=== PATIENT | female | born 1965 | race Caucasian/White ===

== ENCOUNTER 2022-11-12 01:30 | Outpatient (CLI) | payer BC, SELFPAY ==
--- NOTE | 2022-11-12 | DI.US_ITS ---
Exam(s) US BREAST RT COMPLETE MG MAMMO DIAGNOSTIC BI EXAM: MG MAMMO DIAGNOSTIC BI AND COMPLETE RIGHT BREAST ULTRASOUND CLINICAL HISTORY: DIAGNOSTIC, RT BREAST LUMP 7 OCLOCK, 3 BY 2 CM,N63.0. TECHNIQUE: Bilateral CC and MLO mammographic images were obtained with 3D tomosynthesis technique an d utilizing computer aided detection (CAD). Also performed additional spot compression view of the r ight breast. Complete right breast ultrasound was performed including all 4 quadrants as well as the right axilla. COMPARISON: NONE. This patient has had 1 prior mammogram in [place] over 1 year ago. She did not have symptoms at that time. Present complaint is a new right breast lump x4 months. Denies pain. Denies fever. Denies nipple d ischarge. FINDINGS: DIAGNOSTIC BILATERAL MAMMOGRAM: Fibroglandular tissue pattern bilaterally is moderately dense. There are no significant focal findings in the left breast. Posteriorly in the right breast there is a suggestion of a lobulated nodular density. Persists on sp ot compression view. No malignant-appearing microcalcification. No obvious architectural distortion . COMPLETE RIGHT BREAST ULTRASOUND: At the 4 o'clock position there is a concerning solid nodule measur ing approximately 3 by 1.2 cm and corresponding to the palpable lump. Exhibits neutral through transmission. No other focal findings in the 4 quadrants of the right breast. Right axilla is negative for signifi cant adenopathy IMPRESSION: Findings at 4 o'clock position of the right breast which correspond to palpable lump and suspicious f or malignancy. Ultrasound-guided core biopsy recommended. . The patient was informed of the findings and follow-up recommendations by myself prior to leaving the department today. BI-RADS Category 5 - Highly Suggestive of Malignancy: Biopsy recommended Breast Density - Category C - Heterogeneously dense Breast density Category C or D implies that the patient has dense breast tissue. Dense breast tissue can make it harder to find cancer on a mammogram. Dense breast tissue is also associated with an incr eased risk of breast cancer. This information about the result of the mammogram report was provided to the patient to raise their awareness. Use this report when you speak with the patient about their risks for breast cancer, which includes their family history. At that time, you may recommend additional screening tests (Ultrasoun d or MRI) as these tests may add significant information. A negative radiographic report should not delay biopsy if a dominant or clinically suspicious mass is present. Up to ten percent of cancers are not identified on mammography. A negative report may reinforce clinical impression. Adenosis and dense breasts may obscure an underlying neoplasm. False positive reports average 6 to 10%. Patient will receive a letter notifying them of these results.
== END 2022-11-12 01:50 ==
PROVIDERS: Visit Provider Nurse Practitioner Family
DX: N63.0 Unspecified lump in unspecified breast (principal); R92.8 Other abnormal and inconclusive findings on diagnostic imaging of breast
CPT/HCPCS: 76642; 77062; 77066; G0279

== ENCOUNTER 2023-05-27 02:44 | Outpatient (RCR) | payer MEDICAID, SELFPAY ==
[2023-05-27] MEDS: Normal Saline Flush 10 ML SYR IVP (08:11)
[2023-05-27 08:21] LABS: Absolute Basophil Count 0.05 10^3/uL (0.0-0.2); Absolute Eosinophil Count 0.12 10^3/uL (0.0-0.7); Absolute Lymphocyte Count 2.73 10^3/uL (1.2-3.4); Absolute Monocyte Count 0.91 10^3/uL (0.1-0.8); Absolute Neutrophil Count 4.89 10^3/uL (1.2-6.7); Basophils % 0.6; Eosinophils % 1.4; HCT 32.3 % (36.0-46.0); HGB 10.6 g/dL (11.2-15.7); Immature Grans % 1.1; MCH 34.2 pg (27.0-33.0); MCHC 32.8 % (32.0-36.0); MCV 104 fL (80-95); MPV 8.9 fL (8.0-11.0); Monocytes % 10.3; Neutrophils % 55.6; Platelet Count 417 10^3/uL (130-400); RDW 13.9 % (11.7-14.6); RDW-SD 52.7 fL
[2023-05-27 08:44] LABS: ALT 16 U/L (14-59); AST 11 U/L (15-37); Albumin 3.7 g/dL (3.4-5.0); Alkaline Phosphatase 97 U/L (46-116); Anion Gap 10.7 mmol/L (3-11); BUN 7 mg/dL (7-18); Bilirubin, Total 0.3 mg/dL (0.2-1.0); CO2 24.3 mmol/L (21.0-32.0); CREATININE 0.6 mg/dL (0.55-1.02); Calcium 10.2 mg/dL (8.5-10.1); Chloride 106 mmol/L (98-107); Estimated GFR 105.94 (mL/min/1.73m2); FREE T4 0.99 ng/dL (0.76-1.46); Glucose 125 mg/dL (74-106); Potassium 3.6 mmol/L (3.5-5.1); Sodium 141 mmol/L (136-145); TSH 1.73 uIU/mL (0.36-3.74); Total Protein 8.4 g/dL (6.4-8.2)
[2023-05-28 16:33] LABS: Cancer Ag 15-3 20 U/mL (<30)
== END 2023-06-03 23:59 | disposition home or self-care (01) ==
LOC: INF 02:44
PROVIDERS: Visit Provider Internal Medicine Hematology & Oncology
DX: C50.911 Malignant neoplasm of unspecified site of right female breast (principal); Z17.1 Estrogen receptor negative status [ER-]; Z45.2 Encounter for adjustment and management of vascular access device
CPT/HCPCS: 36591; 80053; 86304; 84439; 84443; 85025; 86300

== ENCOUNTER 2023-06-17 00:58 | Outpatient (RCR) | payer MEDICAID, SELFPAY ==
[2023-06-17] MEDS: Normal Saline Flush 10 ML SYR IVP (08:13)
[2023-06-17 08:31] LABS: Abs Immature Grans 0.03 10^3/uL (0.0-0.06); Absolute Basophil Count 0.09 10^3/uL (0.0-0.2); Absolute Eosinophil Count 0.05 10^3/uL (0.0-0.7); Absolute Neutrophil Count 3.05 10^3/uL (1.2-6.7); Basophils % 1.4; Eosinophils % 0.8; HCT 33.6 % (36.0-46.0); Immature Grans % 0.5; Lymphocytes % 36.8; MCH 32.8 pg (27.0-33.0); MCHC 32.7 % (32.0-36.0); MCV 100 fL (80-95); MPV 9.2 fL (8.0-11.0); Monocytes % 13.8; Neutrophils % 46.7; Platelet Count 373 10^3/uL (130-400); RBC 3.35 10^6/uL (3.93-5.22); RDW 13.7 % (11.7-14.6); WBC 6.52 10^3/uL (4.4-10.8)
[2023-06-17 09:25] LABS: ALT 17 U/L (14-59); AST 12 U/L (15-37); Albumin 3.8 g/dL (3.4-5.0); Alkaline Phosphatase 83 U/L (46-116); BUN 8 mg/dL (7-18); Bilirubin, Total 0.3 mg/dL (0.2-1.0); CREATININE 0.7 mg/dL (0.55-1.02); Calcium 10.3 mg/dL (8.5-10.1); Chloride 107 mmol/L (98-107); Estimated GFR 102.07 (mL/min/1.73m2); FREE T4 0.93 ng/dL (0.76-1.46); Glucose 120 mg/dL (74-106); Potassium 3.7 mmol/L (3.5-5.1); Sodium 142 mmol/L (136-145); TSH 2.03 uIU/mL (0.36-3.74); Total Protein 8.1 g/dL (6.4-8.2)
[2023-06-19 13:53] LABS: Cancer Ag 15-3 20 U/mL (<30)
== END 2023-07-03 23:59 | disposition home or self-care (01) ==
LOC: INF 00:58
PROVIDERS: Visit Provider Internal Medicine Hematology & Oncology
DX: C50.911 Malignant neoplasm of unspecified site of right female breast (principal); Z17.1 Estrogen receptor negative status [ER-]; Z45.2 Encounter for adjustment and management of vascular access device
CPT/HCPCS: 36591; 80053; 86304; 84439; 84443; 85025; 86300

== ENCOUNTER 2023-07-08 01:57 | Outpatient (RCR) | payer MEDICAID, SELFPAY ==
[2023-07-08] MEDS: Normal Saline Flush 10 ML SYR IVP (08:13)
[2023-07-08 08:34] LABS: Abs Immature Grans 0.02 10^3/uL (0.0-0.06); Absolute Basophil Count 0.06 10^3/uL (0.0-0.2); Absolute Eosinophil Count 0.07 10^3/uL (0.0-0.7); Absolute Monocyte Count 0.91 10^3/uL (0.1-0.8); Absolute Neutrophil Count 3.97 10^3/uL (1.2-6.7); Basophils % 0.8; HGB 11.1 g/dL (11.2-15.7); Immature Grans % 0.3; Lymphocytes % 31.4; MCH 33.1 pg (27.0-33.0); MCHC 33.6 % (32.0-36.0); MCV 99 fL (80-95); MPV 9.4 fL (8.0-11.0); Monocytes % 12.4; Neutrophils % 54.1; Platelet Count 343 10^3/uL (130-400); RBC 3.35 10^6/uL (3.93-5.22); RDW-SD 50.7 fL; WBC 7.33 10^3/uL (4.4-10.8)
[2023-07-08 09:02] LABS: ALT 17 U/L (14-59); AST 13 U/L (15-37); Albumin 3.9 g/dL (3.4-5.0); Alkaline Phosphatase 85 U/L (46-116); Anion Gap 11.5 mmol/L (3-11); BUN 19 mg/dL (7-18); Bilirubin, Total 0.3 mg/dL (0.2-1.0); CO2 23.5 mmol/L (21.0-32.0); CREATININE 0.7 mg/dL (0.55-1.02); Calcium 10.3 mg/dL (8.5-10.1); Chloride 105 mmol/L (98-107); Estimated GFR 102.07 (mL/min/1.73m2); FREE T4 0.87 ng/dL (0.76-1.46); Glucose 134 mg/dL (74-106); Potassium 3.3 mmol/L (3.5-5.1); Sodium 140 mmol/L (136-145); Total Protein 8.1 g/dL (6.4-8.2)
[2023-07-09 18:20] LABS: Cancer Ag 15-3 18 U/mL (<30)
== END 2023-08-03 23:59 | disposition home or self-care (01) ==
LOC: INF 01:57
PROVIDERS: Visit Provider Internal Medicine Hematology & Oncology
DX: C50.911 Malignant neoplasm of unspecified site of right female breast (principal); Z17.1 Estrogen receptor negative status [ER-]; J18.9 Pneumonia, unspecified organism; A49.02 Methicillin resistant Staphylococcus aureus infection, unspecified site; Z45.2 Encounter for adjustment and management of vascular access device
CPT/HCPCS: 36591; 80053; 86304; 84439; 84443; 85025; 86300

== ENCOUNTER 2023-08-26 03:31 | Outpatient (RCR) | payer MEDICAID, SELFPAY ==
[2023-08-26] MEDS: Normal Saline Flush 10 ML SYR IVP (11:11)
[2023-08-26 11:27] LABS: Abs Immature Grans 0.03 10^3/uL (0.0-0.06); Absolute Basophil Count 0.05 10^3/uL (0.0-0.2); Absolute Eosinophil Count 0.63 10^3/uL (0.0-0.7); Absolute Lymphocyte Count 1.79 10^3/uL (1.2-3.4); Absolute Monocyte Count 0.58 10^3/uL (0.1-0.8); Absolute Neutrophil Count 3.76 10^3/uL (1.2-6.7); Basophils % 0.7; Eosinophils % 9.2; HCT 33.3 % (36.0-46.0); HGB 11.1 g/dL (11.2-15.7); Immature Grans % 0.4; Lymphocytes % 26.2; MCH 31.8 pg (27.0-33.0); MCHC 33.3 % (32.0-36.0); MCV 95 fL (80-95); MPV 9.3 fL (8.0-11.0); Monocytes % 8.5; Platelet Count 222 10^3/uL (130-400); RBC 3.49 10^6/uL (3.93-5.22); RDW 13.3 % (11.7-14.6); RDW-SD 46.8 fL; WBC 6.84 10^3/uL (4.4-10.8)
[2023-08-26 11:56] LABS: ALT 15 U/L (14-59); AST 10 U/L (15-37); Albumin 3.8 g/dL (3.4-5.0); Alkaline Phosphatase 68 U/L (46-116); Anion Gap 11.9 mmol/L (3-11); BUN 12 mg/dL (7-18); Bilirubin, Total 0.3 mg/dL (0.2-1.0); CO2 25.1 mmol/L (21.0-32.0); CREATININE 0.7 mg/dL (0.55-1.02); Calcium 9.9 mg/dL (8.5-10.1); Chloride 106 mmol/L (98-107); Estimated GFR 102.07 (mL/min/1.73m2); FREE T4 0.84 ng/dL (0.76-1.46); Glucose 124 mg/dL (74-106); Potassium 3.7 mmol/L (3.5-5.1); Sodium 143 mmol/L (136-145); Total Protein 7.6 g/dL (6.4-8.2)
[2023-08-27 20:05] LABS: Cancer Ag 15-3 15 U/mL (<30)
== END 2023-09-03 23:59 | disposition home or self-care (01) ==
LOC: INF 03:31
PROVIDERS: Internal Medicine Hematology & Oncology; Visit Provider Internal Medicine Hematology & Oncology
DX: C50.911 Malignant neoplasm of unspecified site of right female breast (principal); Z17.1 Estrogen receptor negative status [ER-]
CPT/HCPCS: 36591; 80053; 86300; 84439; 84443; 85025

== ENCOUNTER 2023-09-30 03:10 | Outpatient (RCR) | payer MEDICAID, SELFPAY ==
[2023-09-30] MEDS: Normal Saline Flush 10 ML SYR IVP (12:23)
[2023-09-30 12:33] LABS: Abs Immature Grans 0.02 10^3/uL (0.0-0.06); Absolute Basophil Count 0.04 10^3/uL (0.0-0.2); Absolute Eosinophil Count 0.28 10^3/uL (0.0-0.7); Absolute Monocyte Count 0.43 10^3/uL (0.1-0.8); Basophils % 0.7; Eosinophils % 4.9; HCT 34.3 % (36.0-46.0); HGB 11.8 g/dL (11.2-15.7); Immature Grans % 0.4; Lymphocytes % 38.8; MCH 32.4 pg (27.0-33.0); MCHC 34.4 % (32.0-36.0); MCV 94 fL (80-95); MPV 8.9 fL (8.0-11.0); Monocytes % 7.6; Neutrophils % 47.6; Platelet Count 255 10^3/uL (130-400); RBC 3.64 10^6/uL (3.93-5.22); RDW 12.6 % (11.7-14.6); RDW-SD 43.7 fL; WBC 5.67 10^3/uL (4.4-10.8)
[2023-09-30 13:04] LABS: ALT 15 U/L (14-59); AST 9 U/L (15-37); Albumin 3.9 g/dL (3.4-5.0); Alkaline Phosphatase 77 U/L (46-116); Anion Gap 11.6 mmol/L (3-11); BUN 16 mg/dL (7-18); Bilirubin, Total 0.3 mg/dL (0.2-1.0); CO2 24.4 mmol/L (21.0-32.0); CREATININE 0.6 mg/dL (0.55-1.02); Calcium 9.9 mg/dL (8.5-10.1); Chloride 106 mmol/L (98-107); Estimated GFR 105.94 (mL/min/1.73m2); FREE T4 0.77 ng/dL (0.76-1.46); Glucose 103 mg/dL (74-106); Potassium 3.5 mmol/L (3.5-5.1); Sodium 142 mmol/L (136-145); TSH 1.86 uIU/Ml (0.36-3.74); Total Protein 7.7 g/dL (6.4-8.2)
[2023-10-01 19:15] LABS: Cancer Ag 15-3 13 U/mL (<30)
== END 2023-10-02 23:59 | disposition home or self-care (01) ==
LOC: INF 03:10
PROVIDERS: Internal Medicine Hematology & Oncology; Visit Provider Internal Medicine Hematology & Oncology
DX: C50.911 Malignant neoplasm of unspecified site of right female breast (principal); Z17.1 Estrogen receptor negative status [ER-]; Z45.2 Encounter for adjustment and management of vascular access device
CPT/HCPCS: 36591; 80053; 86300; 84439; 84443; 85025

== ENCOUNTER 2023-10-21 04:29 | Outpatient (RCR) | payer MEDICAID, SELFPAY ==
[2023-10-21] MEDS: Normal Saline Flush 10 ML SYR IVP (10:40)
[2023-10-21 10:47] LABS: Abs Immature Grans 0.02 10^3/uL (0.0-0.06); Absolute Basophil Count 0.03 10^3/uL (0.0-0.2); Absolute Eosinophil Count 0.24 10^3/uL (0.0-0.7); Absolute Monocyte Count 0.37 10^3/uL (0.1-0.8); Absolute Neutrophil Count 3.15 10^3/uL (1.2-6.7); Basophils % 0.5; Eosinophils % 4.4; HCT 36.5 % (36.0-46.0); HGB 12.3 g/dL (11.2-15.7); Immature Grans % 0.4; Lymphocytes % 30.9; MCH 31.6 pg (27.0-33.0); MCHC 33.7 % (32.0-36.0); MCV 94 fL (80-95); MPV 9.3 fL (8.0-11.0); Monocytes % 6.7; Neutrophils % 57.1; Platelet Count 250 10^3/uL (130-400); RBC 3.89 10^6/uL (3.93-5.22); RDW 12.3 % (11.7-14.6); RDW-SD 42.2 fL; WBC 5.51 10^3/uL (4.4-10.8)
[2023-10-21 11:20] LABS: ALT 15 U/L (14-59); AST 6 U/L (15-37); Albumin 3.9 g/dL (3.4-5.0); Alkaline Phosphatase 80 U/L (46-116); Anion Gap 10.8 mmol/L (3-11); BUN 11 mg/dL (7-18); Bilirubin, Total 0.5 mg/dL (0.2-1.0); CO2 26.2 mmol/L (21.0-32.0); CREATININE 0.7 mg/dL (0.55-1.02); Calcium 9.9 mg/dL (8.5-10.1); Chloride 106 mmol/L (98-107); Estimated GFR 102.07 (mL/min/1.73m2); Glucose 121 mg/dL (74-106); Potassium 3.6 mmol/L (3.5-5.1); Sodium 143 mmol/L (136-145); TSH 1.15 uIU/Ml (0.36-3.74); Total Protein 7.9 g/dL (6.4-8.2)
[2023-10-22 18:27] LABS: Cancer Ag 15-3 14 U/mL (<30)
== END 2023-11-02 23:59 | disposition home or self-care (01) ==
LOC: INF 04:29
PROVIDERS: Internal Medicine Hematology & Oncology; Visit Provider Internal Medicine Hematology & Oncology
DX: C50.911 Malignant neoplasm of unspecified site of right female breast (principal); Z17.1 Estrogen receptor negative status [ER-]; Z45.2 Encounter for adjustment and management of vascular access device
CPT/HCPCS: 36591; 80053; 86300; 84439; 84443; 85025

== ENCOUNTER 2023-12-02 05:33 | Outpatient (RCR) | payer MEDICAID, SELFPAY ==
[2023-11-11] MEDS: Normal Saline Flush 10 ML SYR IVP (08:48)
[2023-11-11 09:02] LABS: Abs Immature Grans 0.02 10^3/uL (0.0-0.06); Absolute Basophil Count 0.03 10^3/uL (0.0-0.2); Absolute Eosinophil Count 0.33 10^3/uL (0.0-0.7); Absolute Lymphocyte Count 1.16 10^3/uL (1.2-3.4); Absolute Monocyte Count 0.58 10^3/uL (0.1-0.8); Absolute Neutrophil Count 4.92 10^3/uL (1.2-6.7); Basophils % 0.4; Eosinophils % 4.7; HCT 38.6 % (36.0-46.0); HGB 12.9 g/dL (11.2-15.7); Immature Grans % 0.3; Lymphocytes % 16.5; MCH 31.5 pg (27.0-33.0); MCHC 33.4 % (32.0-36.0); MCV 94 fL (80-95); MPV 9.1 fL (8.0-11.0); Monocytes % 8.2; Neutrophils % 69.9; Platelet Count 234 10^3/uL (130-400); RBC 4.09 10^6/uL (3.93-5.22); RDW 12.3 % (11.7-14.6); RDW-SD 42.5 fL; WBC 7.04 10^3/uL (4.4-10.8)
[2023-11-11 09:29] LABS: ALT 18 U/L (14-59); AST 12 U/L (15-37); Albumin 4.1 g/dL (3.4-5.0); Alkaline Phosphatase 89 U/L (46-116); Anion Gap 9.9 mmol/L (3-11); BUN 12 mg/dL (7-18); Bilirubin, Total 0.5 mg/dL (0.2-1.0); CO2 27.1 mmol/L (21.0-32.0); CREATININE 0.8 mg/dL (0.55-1.02); Calcium 10.2 mg/dL (8.5-10.1); Chloride 102 mmol/L (98-107); Estimated GFR 86.42 (mL/min/1.73m2); FREE T4 1.03 ng/dL (0.76-1.46); Glucose 134 mg/dL (74-106); Potassium 3.2 mmol/L (3.5-5.1); Sodium 139 mmol/L (136-145); TSH 2.76 uIU/Ml (0.36-3.74); Total Protein 8.4 g/dL (6.4-8.2)
[2023-11-12 16:59] LABS: Cancer Ag 15-3 13 U/mL (<30)
[2023-12-02 13:20] LABS: Abs Immature Grans 0.02 10^3/uL (0.0-0.06); Absolute Basophil Count 0.05 10^3/uL (0.0-0.2); Absolute Lymphocyte Count 1.34 10^3/uL (1.2-3.4); Absolute Monocyte Count 0.48 10^3/uL (0.1-0.8); Absolute Neutrophil Count 5.62 10^3/uL (1.2-6.7); Basophils % 0.6; Eosinophils % 7.4; HCT 35.4 % (36.0-46.0); HGB 11.9 g/dL (11.2-15.7); Immature Grans % 0.2; Lymphocytes % 16.5; MCH 31.6 pg (27.0-33.0); MCHC 33.6 % (32.0-36.0); MCV 94 fL (80-95); Monocytes % 5.9; Neutrophils % 69.4; Platelet Count 240 10^3/uL (130-400); RBC 3.76 10^6/uL (3.93-5.22); RDW 12.3 % (11.7-14.6); RDW-SD 42.9 fL; WBC 8.11 10^3/uL (4.4-10.8)
[2023-12-02] MEDS: Normal Saline Flush 10 ML SYR IVP (13:24)
[2023-12-02 13:44] LABS: ALT 19 U/L (14-59); AST 11 U/L (15-37); Alkaline Phosphatase 95 U/L (46-116); Anion Gap 11.7 mmol/L (3-11); BUN 11 mg/dL (7-18); Bilirubin, Total 0.4 mg/dL (0.2-1.0); CO2 25.3 mmol/L (21.0-32.0); CREATININE 0.8 mg/dL (0.55-1.02); Calcium 9.8 mg/dL (8.5-10.1); Chloride 106 mmol/L (98-107); Estimated GFR 86.42 (mL/min/1.73m2); FREE T4 0.94 ng/dL (0.76-1.46); Glucose 115 mg/dL (74-106); Potassium 3.6 mmol/L (3.5-5.1); Sodium 143 mmol/L (136-145); TSH 1.35 uIU/Ml (0.36-3.74); Total Protein 7.9 g/dL (6.4-8.2)
== END 2023-12-02 23:59 | disposition home or self-care (01) ==
LOC: INF 05:33
PROVIDERS: Internal Medicine Hematology & Oncology; Visit Provider Internal Medicine Hematology & Oncology
DX: C50.911 Malignant neoplasm of unspecified site of right female breast (principal); Z17.1 Estrogen receptor negative status [ER-]; Z45.2 Encounter for adjustment and management of vascular access device
CPT/HCPCS: 36591; 80053; 86300; 84439; 84443; 85025